=== PATIENT | male | born 1940 | race Caucasian/White ===

== ENCOUNTER 2017-08-13 13:49 | Emergency (ER) | payer MEDICARE, BC ==
[2017-08-13 14:11] LABS: #Basophils 0.1 thou/uL (0.0-0.2); #Eosinphils 0.6 thou/uL (0.0-0.7); #Lymphocytes 1.3 thou/uL (1.20-3.40); #Monocytes 1.2 thou/uL (0.11-0.59); #Neutrophils 8.7 thou/uL (1.40-6.50); %Basophils 0.7 % (0.0-1.0); %Eosinophils 5.3 % (0.0-10.0); %Lymphocytes 10.6 % (21.0-51.0); %Monocytes 10.2 % (0.0-10.0); %Neutrophils 73.3 % (42.0-75.0); Mean Corpuscular HGB CONC 33.2 g/dL (32.0-36.0); Mean Corpuscular Hemoglobin 30.5 pg (27.0-31.0); Mean Platelet Volume 7.4 fL (7.4-10.4); Platelet Count 285 thou/uL (130-400); RBC Distribution Width 12.5 % (11.5-14.5); Red Blood Cell (RBC) Count 3.26 mill/uL (4.70-6.10); White Blood Cell (WBC) Count 11.9 thou/uL (4.8-10.8)
[2017-08-13 14:14] LABS: INR-International Normal Ratio 2.5; Prothrombin Time 28.2 SEC (12.0-14.7)
[2017-08-13 14:15] LABS: PTT 45.1 SEC (22.9-36.1)
[2017-08-13 14:28] LABS: ALT (SGPT) 12 U/L (8-55); AST (SGOT) 19 U/L (5-34); Albumin 3.1 g/dL (3.4-4.8); Alkaline Phosphatase 92 U/L (40-150); Anion Gap 15 mmol/L (10-20); BUN (Urea Nitrogen) 18 mg/dL (8.4-25.7); Bilirubin, Total 0.6 mg/dL (0.2-1.2); CK (CPK) 56 U/L (30-200); Calc. Creatinine Clearance 0 mL/min (70-130); Calcium 8.2 mg/dL (7.8-10.44); Carbon Dioxide 23 mmol/L (23-31); Chloride 105 mmol/L (98-107); Estimated GFR-MDRD 31; Globulin 2.8 g/dL (2.4-3.5); Glucose 114 mg/dL (83-110); Lipase 25 U/L (8-78); Protein, Total 5.9 g/dL (5.8-8.1); Sodium 139 mmol/L (136-145)
[2017-08-13 14:34] LABS: CKMB 1.8 ng/mL (0-6.6)
--- NOTE | 2017-08-13 14:36 | RAD ---
PORTABLE CHEST: Date: 08-13-17 Provided Clinical History: Syncope. FINDINGS: Abnormal parenchymal opacity involving the left perihilar and lingular regions. Please correlate with separately performed CT examination. No pleural fluid or pneumothorax is apparent. The right lung ap pears clear. Heart size does not appear enlarged. IMPRESSION: Lingular and left perihilar parenchymal opacity. Correlation with subsequently performed chest CT rec ommended. POS: CET
--- NOTE | 2017-08-13 14:46 | CT ---
CT CHEST AND ABDOMEN FOR AORTOGRAM WITH CONTRAST: Date: 08/13/17 Multiple axial tomograms obtained from aortic arch through aortic bifurcation with arterial phase enh ancement following aortogram protocol with multiplanar reconstruction and 3D postprocessing. HISTORY: Syncope. Recent aortic aneurysm repair 3 weeks ago in [place]. No comparison studies. FINDINGS: There is mild ectasia of the ascending aorta measuring up to 3.8 cm. There is mild aneurysmal dilatat ion of the aortic arch and descending thoracic aorta. There are numerous surgical clips surrounding t he aortic arch and upper descending aorta indicating site of aneurysm repair. There is abnormal linea r filling defect in the upper descending thoracic aorta at the arch consistent with focal dissection. There is an active leak seen posterior from the descending thoracic aorta inferior to the arch in the mid thorax. There is fluid density surrounding the thoracic aorta at this location suggesting hemato ma. Active leak with contrast is seen from the posterior wall of the thoracic aorta at this location. There is a moderate size fluid collection/hemothorax in the left chest. There is ectasia of the abdominal aorta, with the upper abdominal aorta at the diaphragm measuring 4. 0 cm. The superior abdominal aorta measures 3.5 cm. The lower abdominal aorta below the renal arterie s measures 3.4 cm. Both iliac arteries are ectatic with atherosclerotic change present. Both common i liacs measure approximately 2.0 cm diameter. Thyroid is incompletely imaged, but there is a left lobe thyroid mass which has substernal extension. Mass measures 4.3 cm AP dimension in axial plane. There are atelectatic changes in the left lung associated with the fluid/hematoma surrounding the marciano cending aorta. Right lung appears clear of confluent infiltrate. There are some hazy parenchymal espitia ges peripherally in the right upper and mid lung which could represent areas of atelectasis or early infiltrate. Liver, spleen, and pancreas are unremarkable. Kidneys show no evidence of hydronephrosis. Small cyst from the superior left kidney is noted. Bowel loops are unremarkable. IMPRESSION: 1. 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 2. Mild aneurysmal dilatation of the abdominal aorta as described. 3. Left lobe thyroid mass. Findings relayed to Dr. Gallegos at time of dictation. CODE CR. POS: PRETTY
--- NOTE | 2017-08-15 15:02 | EKG ---
Test Reason : Blood Pressure : / mmHG Vent. Rate : 072 BPM Atrial Rate : 072 BPM P-R Int : 158 ms QRS Dur : 094 ms QT Int : 424 ms P-R-T Axes : 020 028 008 degrees QTc Int : 464 ms Normal sinus rhythm Normal ECG Confirmed by SYLVIA FLORES ([id number]), publishing editor ALYSON العراقي ([id number]) on 08/15/2017 3:00:43 PM Referred By: Confirmed By:SYLVIA FLORES
== END 2017-08-13 16:13 | disposition short-term general hospital (02) ==
LOC: ERS 13:49
DX: I95.9 Hypotension, unspecified (principal); R55 Syncope and collapse; I25.10 Atherosclerotic heart disease of native coronary artery without angina pectoris; E78.5 Hyperlipidemia, unspecified; I10 Essential (primary) hypertension; Z79.899 Other long term (current) drug therapy; Z79.82 Long term (current) use of aspirin
CPT/HCPCS: 36415; 71045; 71275; 80053; 82553; 83690; 84484; 85025; 85610; 85730; 86850; 86900; 86901; 93005; 99292

== ENCOUNTER 2017-11-19 13:01 | Outpatient (CLI) | payer MEDICARE, BC | END 2017-11-19 13:02 | disposition home or self-care (01) | PROVIDERS: ATTEND Internal Medicine | DX: I49.9 Cardiac arrhythmia, unspecified (principal) | CPT/HCPCS: 93225; 93226 ==

== ENCOUNTER 2020-04-11 07:39 | Outpatient (CLI) | payer MEDICARE, BC ==
--- NOTE | 2020-04-11 09:28 | CT ---
CT ANGIOGRAM THORAX WITH CONTRAST: DATE: 04/11/2020 HISTORY: 80-year-old male with thoracic aortic aneurysm, history of previous repair. COMPARISON: 08/13/2017 TECHNIQUE: IV injection of iodinated contrast. Arterial bolus chasing technique scan through the chest. 3-D MIP reconstructions. FINDINGS: Atherosclerosis, ectasia, and tortuosity of entire thoracic aorta, especially aortic arch and descend ing thoracic aorta; and visualized portions of abdominal aorta to the level of the SMA. Caliber of aorta: Ascending aorta: 3.8 cm Aortic Arch just distal to origin of left subclavian artery: 3.4 cm. Descending thoracic aorta at level of focal penetrating aneurysm, T7: 3.7 cm Thoracoabdominal junction at T11: 3.9 cm upper abdominal aorta between celiac artery and SMA: 3.8 cm Again noted is the focal dissection with intimal flap origin at posterior aortic arch, located a dist ance of approximately 6 cm from left subclavian artery origin. This dissection has propagated a distance of approximate 4 cm distally Again noted is the approximately 0.8 x 1 cm focal defect at the posterior wall of the descending thor acic aorta at the T7 level, with short extension of intraluminal IV contrast a short curvilinear path projecting posteriorly from the lumen. The caliber of the defect, the opening of this penetratio n, is unchanged. However, the posterior curvilinear projection of the extraluminal contrast, is slightly smaller now. The previously demonstrated left para-aortic focally loculated fluid collection in the left lung, has resolved. Previously, there was a small left pleural effusion. There continues to be a similar size small left pleural effusion. Currently no acute hematoma around the thoracic aorta. No right pleural effusion. No pneumothorax. No consolidation or pulmonary edema. No pulmonary thromboembolism. 4 x 2.5 x 5 cm left thyroid nodule protruding inferiorly from the posterior aspect of the lower pole of the left lobe of the thyroid gland, unchanged. Atherosclerotic calcification of coronary arteries, including LAD and LCx. No pericardial effusion. Trachea and bilateral mainstem bronchi patent and clear. No mediastinal or hilar lymphadenopathy.. 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 The caliber of its opening is unchanged, but the rest of this posterior projection is slightly smaller than before. 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 Beckemeyer type B. DeBakey type III. Remains in proximal descending thoracic aorta. 3) ectasia, tortuosity, and atherosclerosis of entire aorta. 4) small left pleural effusion. 5) interval resolution of the left para-aortic fluid collection in the left lung. 6) left thyroid nodule, unchanged. 7) ICD-10: I 25.84: Coronary atherosclerosis due to calcified coronary lesion.
[2020-04-11] MEDS ORDERED: Iopamidol-370 76% 500 ML 1 ML ONE (10:06)
== END 2020-04-11 07:40 | disposition home or self-care (01) ==
LOC: BICCT 07:39
PROVIDERS: ATTEND Internal Medicine Cardiovascular Disease
DX: I71.2 Thoracic aortic aneurysm, without rupture (principal); I70.0 Atherosclerosis of aorta; J90 Pleural effusion, not elsewhere classified; E04.1 Nontoxic single thyroid nodule; J81.1 Chronic pulmonary edema; I25.84 Coronary atherosclerosis due to calcified coronary lesion
CPT/HCPCS: 71275; Q9967

== ENCOUNTER 2020-06-25 13:14 | Emergency (ER) | payer MEDICARE, BC ==
[2020-06-25 15:23] LABS: #Eosinphils 0.1 thou/uL (0.0-0.7); #Lymphocytes 1.7 thou/uL (1.20-3.40); #Monocytes 0.5 thou/uL (0.11-0.59); #Neutrophils 3.9 thou/uL (1.40-6.50); %Basophils 0.6 % (0.0-1.0); %Eosinophils 2.1 % (0.0-10.0); %Monocytes 7.6 % (0.0-10.0); %Neutrophils 62.7 % (42.0-75.0); Hemoglobin 12.2 g/dL (14.0-18.0); Mean Corpuscular HGB CONC 35.4 g/dL (32.0-36.0); Mean Corpuscular Hemoglobin 33.5 pg (27.0-31.0); Mean Corpuscular Volume 94.6 fL (78.0-98.0); Mean Platelet Volume 8.6 fL (7.4-10.4); Platelet Count 130 thou/uL (130-400); RBC Distribution Width 12.1 % (11.5-14.5); Red Blood Cell (RBC) Count 3.65 mill/uL (4.70-6.10); White Blood Cell (WBC) Count 6.1 thou/uL (4.8-10.8)
[2020-06-25 15:39] LABS: ALT (SGPT) 10 U/L (8-55); AST (SGOT) 20 U/L (5-34); Albumin 3.5 g/dL (3.4-4.8); Alkaline Phosphatase 66 U/L (40-110); Anion Gap 14 mmol/L (10-20); BUN (Urea Nitrogen) 17 mg/dL (8.4-25.7); Bilirubin, Total 0.8 mg/dL (0.2-1.2); CK (CPK) 55 U/L (30-200); Calc. Creatinine Clearance 0 mL/min (70-130); Calcium 8.8 mg/dL (7.8-10.44); Carbon Dioxide 22 mmol/L (23-31); Chloride 109 mmol/L (98-107); Globulin 2.9 g/dL (2.4-3.5); Glucose 92 mg/dL (83-110); Lipase 54 U/L (8-78); Potassium 5.1 mmol/L (3.5-5.1); Protein, Total 6.4 g/dL (5.8-8.1); Sodium 140 mmol/L (136-145)
--- NOTE | 2020-06-25 16:58 | RAD ---
Exam: Chest one view HISTORY:Hypertension. Comparison: 12/29/2018 FINDINGS: Cardiac silhouette:Cardiomegaly. Aorta: Atherosclerosis and elongation Pulmonary vessels: Normal Costophrenic angles: Clear LUNGS: Scarring and atelectasis in the left lung. Pneumothorax: None Osseous abnormalities: None IMPRESSION: 1. Atherosclerosis and elongation of the aorta 2. Chronic changes in the left lung. No acute cardiopulmonary process.
== END 2020-06-25 17:50 | disposition home or self-care (01) ==
LOC: ERS 13:14
DX: I10 Essential (primary) hypertension (principal); R60.0 Localized edema; I25.10 Atherosclerotic heart disease of native coronary artery without angina pectoris; E78.5 Hyperlipidemia, unspecified; Z79.82 Long term (current) use of aspirin; Z79.899 Other long term (current) drug therapy
CPT/HCPCS: 36415; 71045; 80053; 82550; 83690; 84484; 85025; 93005

== ENCOUNTER 2020-07-28 07:24 | Outpatient (CLI) | payer MEDICARE, BC ==
[2020-07-26 12:46] VITALS: BMI 26.2
[2020-07-28 14:17] VITALS: BP 149/82; TEMP 97.2
== END 2020-07-28 10:00 | disposition home or self-care (01) ==
LOC: RAD 07:24
PROVIDERS: ATTEND Neurological Surgery
DX: M47.26 Other spondylosis with radiculopathy, lumbar region (principal); I71.4 Abdominal aortic aneurysm, without rupture
CPT/HCPCS: 62304; 72132

== ENCOUNTER 2024-11-10 12:18 | Outpatient (CLI) | payer MEDICARE ==
[~2024-11-10 12:18] MED LIST: Iopamidol 370 76% 100 ML VIAL ONE
== END 2024-11-10 12:19 | disposition home or self-care (01) ==
LOC: CT 12:18
PROVIDERS: ATTEND Nurse Practitioner Family
DX: M48.062 Spinal stenosis, lumbar region with neurogenic claudication (principal); M47.816 Spondylosis without myelopathy or radiculopathy, lumbar region; M47.815 Spondylosis without myelopathy or radiculopathy, thoracolumbar region; M51.369 Other intervertebral disc degeneration, lumbar region without mention of lumbar back pain or lower extremity pain; M47.817 Spondylosis without myelopathy or radiculopathy, lumbosacral region; I71.43 Infrarenal abdominal aortic aneurysm, without rupture; M48.07 Spinal stenosis, lumbosacral region; Z98.890 Other specified postprocedural states
CPT/HCPCS: 72133; Q9967

== ENCOUNTER 2024-12-05 12:10 | Emergency (ER) | payer MEDICARE ==
[2024-12-05] MEDS ORDERED: Nitroglycerin 0.4 MG TAB 1 EACH ONE (12:33)
[2024-12-05 12:54] LABS: #Basophils Less than 0.03 10x3/uL (0.0-0.2); #Eosinophils Less than 0.03 10x3/uL (0.0-0.7); #Monocytes 0.81 10x3/uL (0.11-0.59); #Neutrophils 8.14 10x3/uL (1.40-6.50); %Basophils 0.1 % (0.0-1.0); %Eosinophils 0.0 % (0.0-10.0); %Lymphocytes 9.1 % (21.0-51.0); %Monocytes 8.1 % (0.0-10.0); %Neutrophils 81.4 % (42.0-75.0); Hematocrit 30.6 % (42.0-52.0); Hemoglobin 10.4 g/dL (14.0-18.0); Mean Corpuscular Hemoglobin 30.7 pg (27.0-31.0); Mean Corpuscular Volume 90.3 fL (78.0-98.0); Platelet Count 132 10x3/uL (130-400); Red Blood Cell (RBC) Count 3.39 mill/uL (4.70-6.10); White Blood Cell (WBC) Count 10.00 10x3/uL (4.8-10.8)
[2024-12-05 13:11] LABS: ALT (SGPT) 20 U/L (Less than 45); AST (SGOT) 24 U/L (11-34); Albumin 3.2 g/dL (3.1-4.5); Alkaline Phosphatase 61 U/L (40-110); Anion Gap 14 mmol/L (10-20); BUN (Urea Nitrogen) 36 mg/dL (8.4-25.7); Bilirubin, Total 0.5 mg/dL (0.3-1.2); Calc. Creatinine Clearance 0 mL/min (70-130); Calcium 8.2 mg/dL (7.8-10.44); Carbon Dioxide 21 mmol/L (23-31); Chloride 110 mmol/L (98-107); Globulin 2.4 g/dL (2.4-3.5); Glucose 95 mg/dL (83-110); Potassium 4.4 mmol/L (3.5-5.1); Sodium 141 mmol/L (136-145)
[2024-12-05 13:16] LABS: Troponin I 0.017 ng/mL (< 0.028)
== END 2024-12-05 15:15 | disposition home or self-care (01) ==
LOC: ERS 12:10
DX: R07.2 Precordial pain (principal); I25.10 Atherosclerotic heart disease of native coronary artery without angina pectoris; I10 Essential (primary) hypertension; E78.5 Hyperlipidemia, unspecified; Z86.73 Personal history of transient ischemic attack (TIA), and cerebral infarction without residual deficits; Z55.6 Problems related to health literacy; Z79.899 Other long term (current) drug therapy; Z79.82 Long term (current) use of aspirin
CPT/HCPCS: 36415; 71045; 80053; 83880; 84484; 85025; 93005; 94760